=== PATIENT | male | born 2000 | race Asian ===

== ENCOUNTER 2022-08-03 21:14 | Emergency (ER) | payer OTHER ==
[~2022-08-03] VITALS: Ht 162.6 cm; Wt 66.0 kg
[2022-08-03 21:41] VITALS: TEMP 98.8
[2022-08-04] MEDS ORDERED: PERTUSS(ACELL),DIPH,TET VAC/PF 0.5 ML SYRINGE IM. ONE (00:15)
[2022-08-04] MEDS ORDERED: AMOX1TAB16 PO (00:15)
[2022-08-04 00:32] VITALS: BP 115/74; PULSE 71; RESP 17
== END 2022-08-04 00:32 | disposition home or self-care (01) ==
LOC: EMS 21:17
DX: S61.052A Open bite of left thumb without damage to nail, initial encounter (principal); W54.0XXA Bitten by dog, initial encounter; Y93.89 Activity, other specified; Y92.89 Other specified places as the place of occurrence of the external cause; Y99.8 Other external cause status
CPT/HCPCS: 90471; 90715; 99283